=== PATIENT | male | born 2000 | race Caucasian/White ===

== ENCOUNTER 2020-01-24 16:54 | Emergency (ER) | payer BC, SELFPAY ==
[2020-01-24 17:11] VITALS: BP 127/68; PULSE 74; RESP 24; TEMP 36.1; O2SAT 100
--- NOTE | 2020-01-24 17:18 | ED.NAVMDI ---
HPI - Nausea/Vomiting/Diarrhea General Chief complaint: Nausea/Vomiting/Diarrhea Stated complaint: stomach and diahrea Time Seen by Provider: 01/24/20 17:18 Source: patient and RN notes reviewed History of Present Illness HPI Narrative: Patient is a 19-year-old male that presents the urgent care with complaints of loose stools and upset stomach. Patient states that started approximately 4 days ago after eating lasagna with ricotta cheese and [employer]. Patient states that it started out as pure watery stools and knots in his stomach . Patient states that for the last 24 hours he is only had 3 bowel movements in the last 1 was slightly formed . Patient denies any fever, chills, nausea, vomiting. Currently denies of any abdominal pain. Denies of any urinary symptoms. Patient states he went to the ER for food poisoning in the past and they gave him fluids and some type of pill . Patient was assuming he may get that pill again . It was noted in patient's chart that he got hydrocodone. Patient will not be getting any refills of hydrocodone. No acute distress noted. Patient aware of plan of care. Related Data Home Medications Medication Instructions Recorded Confirmed No Home Medications 01/24/20 01/24/20 Allergies Allergy/AdvReac Type Severity Reaction Status Date / Time No Known Allergies Allergy Unknown Verified 01/24/20 17:13 Review of Systems Review of Systems: Narrative: CONSTITUTIONAL: Denies fever, chills, or sweats. EYES: Denies visual changes, redness, or discharge. ENT: Denies rhinorrhea, congestion, sore throat, or otalgia. CARDIOVASCULAR: Denies chest pain, palpitations, or edema. RESPIRATORY: Denies cough or dyspnea. GASTROINTESTINAL: Currently only reports of 2 loose stools this afternoon GENITOURINARY: Denies dysuria or hematuria. SKIN: Denies rash or itching. MUSCULOSKELETAL: Denies back pain, joint pain, or myalgia. NEUROLOGIC: Denies headache, numbness, or weakness. All other systems reviewed are negative, except as documented in HPI. PMFSH Comments At the time of my signature, I reviewed and agree with the nursing past medical, surgical, social, and family history. There is no relevant family history pertinent to the patient complaint. Exam Narrative: Exam Narrative: GENERAL: This is a well-nourished, well-developed patient, in no apparent distress. HEAD: normocephalic, atraumatic. EYES: PERRL. Sclera clear/white. Vision is grossly intact. EARS: External ears normal NOSE: External nose normal with no obvious nasal discharge THROAT: Mucous membranes moist NECK: Neck supple GASTROINTESTINAL: Abdomen soft, non-tender, nondistended. Bowel sounds are active. SKIN: warm, intact with no suspicious lesions or rash, good texture and turgor. NEURO: awake, alert, and oriented to person, place and time. There were no obvious focal neurologic abnormalities. EXTREMITIES: No clubbing, cyanosis, or edema. Course Vital Signs Vital signs: Vital Signs Temperature 97 F L 01/24/20 17:11 Pulse Rate 74 01/24/20 17:11 Respiratory Rate 24 H 01/24/20 17:11 Blood Pressure 127/68 01/24/20 17:11 Pulse Oximetry 100 01/24/20 17:11 Temperature 97 F L 01/24/20 17:11 Pulse Rate 74 01/24/20 17:11 Respiratory Rate 24 H 01/24/20 17:11 Blood Pressure 127/68 01/24/20 17:11 Pulse Oximetry 100 01/24/20 17:11 Reviewed MDM - Nausea/Vomiting/Diarrhea MDM Narrative Medical decision making narrative: Advised the patient to continue using Imodium [id number], if necessary. Increase water intake and avoid sugary and caffeinated drinks. Continue to eat a bland diet, follow the BRAT diet. Symptoms are likely related to gastroenteritis. However, if you develop any increase in symptoms associated with fever, vomiting, nausea, persistent abdominal pain?go to the emergency room. Follow-up with your PCP within 2 to 5 days or for worsening symptoms or failure to improve. Differential Diagnosis Dif
== END 2020-01-24 17:30 | disposition home or self-care (01) ==
PROVIDERS: Emergency Provider Nurse Practitioner Family
DX: R19.7 Diarrhea, unspecified (principal)
CPT/HCPCS: 99201; G0463

== ENCOUNTER 2020-05-12 18:04 | Emergency (ER) | payer BC, SELFPAY ==
[2020-05-12 18:10] VITALS: BP 126/60; PULSE 77; RESP 18; TEMP 36.4; O2SAT 100
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
== END 2020-05-12 18:34 | disposition home or self-care (01) ==
PROVIDERS: Emergency Provider Nurse Practitioner Family
DX: S16.1XXA Strain of muscle, fascia and tendon at neck level, initial encounter (principal); V49.50XA Passenger injured in collision with unspecified motor vehicles in traffic accident, initial encounter
CPT/HCPCS: 99212; G0463

== ENCOUNTER 2025-02-09 17:06 | Emergency (ER) | payer BC, SELFPAY ==
--- NOTE | ~2025-02-09 | XR_ITS ---
XR ankle LT min 3V Ordering provider: Armando Eller MD History: . Injury- struck w/ hammer, Lt. ankle pain/swelling x3 days. . Comparison: None. FINDINGS: BONES: No acute fracture or dislocation. 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 JOINT SPACES: The ankle mortise is normal. SOFT TISSUES: Normal. IMPRESSION: No acute osseous abnormality left ankle. Reviewed, dictated and finalized at location A.
[2025-02-09 17:09] VITALS: BP 128/84; PULSE 62; RESP 16; TEMP 36.7; O2SAT 100
--- NOTE | 2025-02-09 17:09 | ED_ITS ---
HPI - Extremity Injury (Lower) General Chief Complaint: Extremity Injury, Lower Stated Complaint: LEFT FOOT INJURY Time Seen by Provider: 02/09/25 17:09 Source: patient Mode of arrival: ambulatory Limitations: no limitations History of Present Illness HPI Narrative: Patient is a 24-year-old male with a left ankle injury 3 days ago. He was using a sledgehammer and it slipped and hit his left anterior ankle while he was wearing boots. He is now also having pain continued in the area and bruising around the lateral ankles bilaterally. MD complaint: ankle injury ( Left) Onset (ago): day(s) ( 3) Type of Injury: blunt ( sledgehammer) Place: work and street/outdoors Severity: moderate Severity scale (1-10): 4 Relieving factors: immobilization Exacerbating factors: weight bearing, movement and palpation Context: direct blow ( sledgehammer) Associated symptoms: swelling and able to partially bear weight Other symptoms: none Treatments prior to arrival: cold therapy Related Data Home Medications ?Medication ?Instructions ?Recorded ?Confirmed ?Last Taken ?Type No Home Medications 01/24/20 05/12/20 Unknown History Allergies Allergy/AdvReac Type Severity Reaction Status Date / Time No Known Allergies Allergy Unknown Verified 02/09/25 17:15 Review of Systems Review of Systems: All systems reviewed & are unremarkable except as noted in HPI and below Constitutional: Constitutional: Reports no additional constitutional complaints Eyes: Eyes: Reports no additional eye complaints ENT: Reports system reviewed and no additional complaints, except as documented Cardiovascular: Cardiovascular: Reports no additional cardiovascular complaints Respiratory: Respiratory: Reports no additional respiratory complaints Gastrointestinal: Gastrointestinal: Reports no additional gastrointestinal complaints Genitourinary: Genitourinary: Reports no additional male genitourinary complaints Musculoskeletal: Musculoskeletal: Reports no additional musculoskeletal complaints Integumentary/Breasts: Skin/Breast: Reports system reviewed and no additional complaints, except as docu Neurologic: Reports system reviewed and no additional complaints, except as documented Psychiatric: Psychiatric: Reports no additional psychiatric complaints Endocrine: Endocrine: Reports no additional endocrine complaints Hematologic/Lymphatic: Hematologic/Lymphatic: Reports no additional hematologic/lymphatic complaints Allergic/Immunologic: Allergic/Immunologic: Reports no additional allergic/immunologic complaints Exam Const: General: healthy appearing Nutritional Appearance: well nourished Orientation/consciousness: patient oriented x3 HENMT: Head: normal to inspection Ears: external ears normal Face/Nose/Sinus: Normal external nose present Eyes: Conjunctivae: conjunctivae normal Pupils: Equal, round and reactive pupils present EOM: EOMs intact bilaterally Neck: Neck: normal visual inspection Chest: Chest palpation & inspection: normal inspection of the chest Resp: Effort & Inspection: normal respiratory effort and not labored Auscultation: clear to auscultation bilaterally and no crackles Cardio: Rate: regular rate Rhythm: regular rhythm Heart sounds: no murmurs GI: Inspection: non-distended GI Palp: Yes Soft to palpation and No Tenderness to palpation present (GI) Auscultation: normal bowel sounds : General: Yes bladder normal to palpation Back/Spine/Pelvis: Back: no CVA tenderness Skin: General skin exam: No normal color Rashes: no rashes Wounds: no wounds Other: left ankle has bruising and ecchymosis around the lateral aspect of either side of the ankle near the base of the foot; anterior ankle has some slight ecchymosis as well; bilateral ankle swelling; tender left ankle anterior Neuro: General: patient oriented x3 Cranial nerves: Yes Nystagmus not present Speech: normal speech Extrem: General: abnormal to inspection Other: see skin exam Psych: Mental Status: mental status grossly normal Affect: normal affect Course Vital Signs Vital signs: Vital Signs Temperature 36.7 C 02/09/25 17:09 Pulse Rate 62 02/09/25 17:09 Respiratory Rate 16 02/09/25 17:09 Blood Pressure 128/84 02/09/25 17:09 Pulse Oximetry 100 02/09/25 17:09 Oxygen Delivery Room Air 02/09/25 17:09 Temperature 36.7 C 02/09/25 17:09 Pulse Rate 62 02/09/25 17:09 Respiratory Rate 16 02/09/25 17:09 Blood Pressure 128/84 02/09/25 17:09 Pulse Oximetry 100 02/09/25 17:09 Oxygen Delivery Room Air 02/09/25 17:09 MDM - Extremity Injury (Lower) MDM Narrative Medical decision making narrative: patient is a 24-year-old male with a left ankle injury 3 days ago. We will do an x-ray at this time. Imaging Data Attestation: I personally reviewed and interpreted this imaging study as follows: Radiologist's impression: X-ray left ankle is negative for acute process Discharge Plan Discharge Clinical Impression: Ankle contusion Qualifiers: Encounter type: initial encounter Laterality: left Qualified Code(s): S90.02XA - Contusion of left ankle, initial encounter Patient Disposition: Home Condition: Stable Instructions: Foot Contusion (ED) Patient Language: Hong [place]er Prescriptions: No Action No Home Medications Follow-up/Referrals: UNKNOWN,DOCTOR [Primary Care Provider] - Time of Disposition: 17:40
--- OUTSIDE RECORDS SUMMARY | 2025-02-09 17:10 | XMS_ITS | Clinical Summary ---
Author Organization [facility] Address [address] [place] [address] Phone Care Team Providers Care Accountant Assistant Name Role Phone Unavailable Primary Care Provider Unavailabl e Allergies No known active allergies Medications ondansetron (ZOFRAN) 4 MG Tablet Take 1-2 Tablets by mouth every 8 hours as needed for Nausea - 1st line. 10 Tablet 05/20/2021 Active dicyclomine (BENTYL) 20 MG Tablet Take 1 Tablet by mouth every 6 hours. 30 Tablet 05/20/2021 Active Social History Tobacco Use Types Packs/Day Years Used Date Smoking Tobacco: Never Smokeless Tobacco: Never Sex and Gender Information Value Date Recorded Sex Assigned at Not on file Legal Sex Male 6:12 PM CDT Gender Identity Not on file Sexual Orientation Not on file Last Filed Vital Signs Vital Sign Reading Time Taken Comments Blood Pressure 130/63 05/20/2021 8:36 PM CDT Pulse 70 05/20/2021 8:36 PM CDT Temperature 36.1 C (97 F) 05/20/2021 6:17 PM CDT Respiratory Rate 18 05/20/2021 8:36 PM CDT Oxygen Saturation 100% 05/20/2021 8:36 PM CDT Inhaled Oxygen Concentration - - Weight 145.2 kg (320 lb) 05/20/2021 6:17 PM CDT Height 185.4 cm (6' 1) 05/20/2021 6:17 PM CDT Body Mass Index 42.22 05/20/2021 6:17 PM CDT Plan of Treatment Health Maintenance Due Date Last Done Comments Hepatitis C Virus (HCV) Screening 2000 Meningococcal B Immunization (1 of 2 - Patient Seeks Protection) 2016 Influenza Immunization (#1) 2024 06/29/2005 SARS-COV-2 Immunization ( - 2023-25 season) 2024 Respiratory Syncytial Virus (RSV) Immunization (Adult) (1 - 1-dose 75+ series) 2075 Hepatitis B Immunization Completed 000, 2000, 2000 Pneumococcal Immunization Combined Aged Out 05/18/2004, 2000 No longer eligibl e based on patient's age to complete this topic DTaP/Tdap/Td Immunization Discontinued 2009, 05/18/2004, 09/02/2003, Additional history exists TdaP Immunization Completed 04/30/2010 Human Papillomavirus (HPV) Immunization Completed 03/27/2015, 05/14/2014 Meningococcal Immunization (ACWY) Completed 06/07/2017, 03/29/2011 Rotavirus Immunization Aged Out No lo nger eligible based on patient's age to complete this topic
== END 2025-02-09 17:45 | disposition home or self-care (01) ==
PROVIDERS: Emergency Provider Emergency Medicine; PCP Family Medicine
DX: S90.02XA Contusion of left ankle, initial encounter (principal); W22.8XXA Striking against or struck by other objects, initial encounter
CPT/HCPCS: 73610; 99283